=== PATIENT | male | born 1970 | race Caucasian/White ===

== ENCOUNTER 2022-12-19 18:50 | Emergency (ER) | payer MEDICAID, SELFPAY ==
[2022-12-19 18:56] VITALS: BP 159/90; PULSE 77; RESP 18; TEMP 36.9; O2SAT 98
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
--- NOTE | 2022-12-19 19:00 | DI.RAD_ITS ---
Exam(s) XR FEMUR LT EXAM: XR FEMUR LT CLINICAL HISTORY: Left Hip pain. TECHNIQUE: 2D digital imaging was performed. COMPARISON: No exams were available for comparison FINDINGS: 3 views There is a minimally displaced fracture of the superior pubic ramus left side. Possible also nondisp laced fracture of the inferior pubic ramus left side. No hip fracture evident. Remainder of the fem ur is unremarkable. IMPRESSION: Intact femur but there are pubic rami fractures on the left side. DATA REPOSITORY: RADIATION DOSE DELIVERED:
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
[2022-12-19 19:14] LABS: Abs Immature Grans 0.09 10^3/uL (0.0-0.06); Absolute Basophil Count 0.04 10^3/uL (0.0-0.2); Absolute Eosinophil Count 0.06 10^3/uL (0.0-0.7); Absolute Lymphocyte Count 1.05 10^3/uL (1.2-3.4); Absolute Neutrophil Count 12.09 10^3/uL (1.2-6.7); Basophils % 0.3; Eosinophils % 0.4; HCT 42.5 % (40.0-50.0); HGB 14.9 g/dL (13.5-17.5); Immature Grans % 0.6; Lymphocytes % 7.4; MCH 29.3 pg (27.0-33.0); MCHC 35.1 % (32.0-36.0); MCV 84 fL (80-95); MPV 9.8 fL (8.0-11.0); Monocytes % 6.3; Platelet Count 187 10^3/uL (130-400); RBC 5.09 10^6/uL (4.36-5.78); RDW 12.1 % (11.8-14.1); RDW-SD 36.9 fL; WBC 14.22 10^3/uL (4.4-10.8)
[2022-12-19] MEDS: HYDROmorphone 2 MG/ML SYR 0.5 MG IVP ×3 (19:19→23:01)
[2022-12-19] MEDS: Normal Saline 1,000 ML 1000 ML IV (19:20)
[2022-12-19] MEDS: Ondansetron 4 MG/2 ML VIAL IVP (19:20)
[2022-12-19 19:36] LABS: ALT 34 U/L (16-63); AST 33 U/L (15-37); Albumin 4.2 g/dL (3.4-5.0); Alkaline Phosphatase 86 U/L (46-116); Anion Gap 10.9 mmol/L (3-11); BUN 23 mg/dL (7-18); Bilirubin, Total 0.7 mg/dL (0.2-1.0); CO2 26.1 mmol/L (21.0-32.0); CREATININE 1.1 mg/dL (0.70-1.30); Calcium 8.7 mg/dL (8.5-10.1); Chloride 104 mmol/L (98-107); Estimated GFR 81.78 (mL/min/1.73m2); Glucose 104 mg/dL (74-106); Lipase 78 U/L (16-77); Potassium 3.6 mmol/L (3.5-5.1); Sodium 141 mmol/L (136-145); Total Protein 7.3 g/dL (6.4-8.2)
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
[2022-12-19] MEDS: Omnipaque 350 MG/ML 100 ML BTL IJ (20:33)
[2022-12-19] MEDS: Normal Saline Flush 10 ML SYR IVP (20:34)
[2022-12-19] MEDS: Normal Saline - Diluent 50 ML VIAL IJ (20:34)
[2022-12-19 20:43] LABS: Bilirubin Negative (Negative); Blood Negative (Negative); Clarity Clear (Clear); Glucose Negative (Negative); Ketones 15 mg/dL (Negative); Leukocyte Esterase Negative (Negative); Nitrite Negative (Negative); Specific Gravity >= 1.030 (1.005-1.025); Urobilinogen 0.2 mg/dL (Up to 0.2)
[2022-12-19 20:52] LABS: Epithelial Cells Rare HPF (Negative); RBC 0-2 HPF (0-2); WBC 0-2 HPF (0-5)
[2022-12-19 20:53] LABS: Bacteria Rare HPF (Negative); C & S Indicated? No; Casts Negative LPF (Negative); Crystals Negative HPF (Negative); Mucus Moderate (Negative)
[2022-12-19] MEDS: Lactated Ringers 1,000 ML 1000 ML IV (20:59)
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
[2022-12-19] MEDS: HYDROmorphone 2 MG/ML SYR 1 MG IVP (22:09)
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
[2022-12-19 22:36] VITALS: BP 150/96
[2022-12-19 23:39] VITALS: BP 150/96; PULSE 78; RESP 22; O2SAT 98
== END 2022-12-19 23:08 | disposition short-term general hospital (02) ==
PROVIDERS: Emergency Provider Registered Nurse Emergency; PCP Nurse Practitioner Family
DX: S32.9XXA Fracture of unspecified parts of lumbosacral spine and pelvis, initial encounter for closed fracture (principal); V29.39XA Other motorcycle (driver) (passenger) injured in unspecified nontraffic accident, initial encounter; S50.312A Abrasion of left elbow, initial encounter
CPT/HCPCS: 73552; 80053; 83690; 96361; 96374; 96375; 96376; 99285; 71045; 72170; 74177; 81003; 81015; 85025; J1170; J2405; J3490